=== PATIENT | female | born 1960 | race Caucasian/White ===

== ENCOUNTER 2021-06-30 17:58 | Inpatient (IN) ==
[2021-06-30 19:02] LABS: ABG Base Excess -0.6 MMOL/L (-2.5-2.5); ABG HCO3 23.9 MMOL/L (20-26); ABG Oxygen Saturation 95.8 % (95-100); ABG PCO2 34.5 MM HG (35-48); ABG PH 7.437 (7.35-7.45); ABG PO2 76.9 MM HG (80-95); ABG TCO2 21.3 MMOL/L (23-27)
[2021-06-30 19:31] LABS: Basophils % 0.2 % (0.0-0.8); Eosinophils % 0.3 % (0.00-10.9); Hematocrit 29.9 VOL% (35.7-47.0); Hemoglobin 9.5 GM/DL (12.0-16.0); Immature Granulocytes % 1.3 %; Immature Granulocytes Absolute 0.08 #; Lymphocytes # 1.2 10*3/uL (1.4-4.0); Lymphocytes % 19.8 % (21.3-54.2); Mean Corpuscular HGB Conc 31.8 GM/DL (32-36); Mean Corpuscular Volume 87.4 FL (87-102); Mean Platelet Volume 9.5 FL (9.6-12.0); Monocytes % 10.1 % (1.7-12.7); Neutrophils % 68.3 % (38.7-73.9); Platelet Count 270 T/CUMM (130-400); Red Blood Count 3.42 MC/CUMM (3.8-5.5); White Blood Count 6.1 T/CUMM (4-12)
[2021-06-30 19:45] LABS: Albumin 2.6 G/DL (3.4-5.0); Bilirubin,Total 0.4 MG/DL (0.20-1.00); Calcium 8.1 MG/DL (8.5-10.1); Osmolality,Calculated 277.5 MOS/KG (273-304); Potassium 3.6 MMOL/L (3.5-5.1); Total Protein 5.6 G/DL (6.4-8.2)
[2021-06-30] MEDS ORDERED: diphenhydrAMINE CAP 25 MG CAPSULE PO PRN (20:28)
[2021-06-30] MEDS ORDERED: GLUCAGON 1 MG VIAL IM PRN ×2 (20:28)
[2021-06-30] MEDS ORDERED: DEXTROSE 50% 25 GM/50 ML VIAL IV PRN ×2 (20:28)
[2021-06-30] MEDS ORDERED: ACETAMINOPHEN 325 MG TABLET PO PRN (20:28)
[2021-06-30] MEDS ORDERED: guaiFENesin/DM ER 600-30 MG TABLET PO PRN (20:28)
[2021-06-30] MEDS ORDERED: ZALEPLON 5 MG CAPSULE PO PRN (20:28)
[2021-06-30] MEDS ORDERED: BISACODYL 5 MG TABLET PO PRN (20:28)
[2021-06-30] MEDS ORDERED: ONDANSETRON 4 MG/2 ML VIAL IV PRN (20:28)
[2021-06-30] MEDS ORDERED: hydrALAZINE 20 MG/1 ML VIAL IV PRN (20:28)
[2021-06-30] MEDS ORDERED: NICOTINE 21 MG/24 HR PATCH TRANSDERM PRN (20:28)
[2021-06-30] MEDS ORDERED: LEVOFLOXACIN INJ 750 MG/150 ML PREMIX IV SCH (21:00)
[2021-06-30] MEDS: ENOXAPARIN 40 MG/0.4 ML SYRINGE SUBCUT SCH (21:19)
[2021-06-30] MEDS: FAMOTIDINE 20 MG TABLET PO SCH (22:00)
[2021-06-30] MEDS: ASCORBIC ACID 500 MG TABLET PO SCH (22:00)
[2021-06-30] MEDS: INSULIN LISPRO 100 UNIT/ML SUBCUT SCH (22:21)
[2021-06-30] MEDS: PIPERACILLIN/TAZOBACTAM 3,375 MG in SODIUM CHLORIDE 0.9% 100 ML IV SCH (23:41)
[2021-07-01] MEDS: VANCOMYCIN INJ 1,000 MG in SODIUM CHLORIDE 0.9% 250 ML IV SCH ×2 (03:21→14:52)
[2021-07-01 04:06] LABS: Basophils % 0.2 % (0.0-0.8); Eosinophils % 0.2 % (0.00-10.9); Hematocrit 28.6 VOL% (35.7-47.0); Hemoglobin 9.1 GM/DL (12.0-16.0); Immature Granulocytes % 1.2 %; Immature Granulocytes Absolute 0.08 #; Lymphocytes # 1.2 10*3/uL (1.4-4.0); Lymphocytes % 17.5 % (21.3-54.2); Mean Corpuscular HGB Conc 31.8 GM/DL (32-36); Mean Corpuscular Volume 87.5 FL (87-102); Mean Platelet Volume 9.5 FL (9.6-12.0); Neutrophils % 69.9 % (38.7-73.9); Platelet Count 245 T/CUMM (130-400); Red Blood Count 3.27 MC/CUMM (3.8-5.5); Red Cell Distribution Width 12.9 % (9.3-17.3); White Blood Count 6.6 T/CUMM (4-12)
[2021-07-01 04:32] LABS: Osmolality,Calculated 274.8 MOS/KG (273-304); Potassium 3.8 MMOL/L (3.5-5.1)
[2021-07-01] MEDS: PIPERACILLIN/TAZOBACTAM 3,375 MG in SODIUM CHLORIDE 0.9% 100 ML IV SCH ×2 (05:32→14:59)
[2021-07-01] MEDS: ALBUTEROL/IPRATROPIUM 3 ML NEB RESP TX SCH ×3 (06:44→17:21)
[2021-07-01] MEDS ORDERED: MAGNESIUM SULF RIDER 4 GM/100 ML PREMIX IV PRN (08:01)
[2021-07-01] MEDS ORDERED: MAGNESIUM SULF RIDER 2 GM/50 ML PREMIX IV PRN (08:01)
[2021-07-01] MEDS: CHOLECALCIFEROL 1,000 UNIT TABLET PO SCH (08:50)
[2021-07-01] MEDS: ZINC GLUCONATE 50 MG TABLET PO SCH (08:50)
[2021-07-01] MEDS: CLOPIDOGREL 75 MG TABLET PO SCH (08:50)
[2021-07-01] MEDS: ASCORBIC ACID 500 MG TABLET PO SCH ×2 (08:50→21:21)
[2021-07-01] MEDS: FAMOTIDINE 20 MG TABLET PO SCH ×2 (08:50→21:21)
[2021-07-01] MEDS: DEXAMETHASONE 10 MG/1 ML VIAL IV SCH (08:51)
[2021-07-01] MEDS: INSULIN LISPRO 100 UNIT/ML SUBCUT SCH ×4 (08:51→21:20)
[2021-07-01 09:30] LABS: ABG Base Excess -0.8 MMOL/L (-2.5-2.5); ABG HCO3 23.7 MMOL/L (20-26); ABG Oxygen Saturation 99.1 % (95-100); ABG PCO2 36.2 MM HG (35-48); ABG PH 7.418 (7.35-7.45); ABG TCO2 21.6 MMOL/L (23-27)
[2021-07-01] MEDS: PANTOPRAZOLE 40 MG TABLET PO SCH (09:53)
[2021-07-01] MEDS ORDERED: IVERMECTIN 3 MG TABLET PO SCH ×2 (15:30→17:00)
[2021-07-01] MEDS ORDERED: AZITHROMYCIN INJ 500 MG in SODIUM CHLORIDE 0.9% 250 ML IV SCH (16:00)
[2021-07-01] MEDS: LEVOFLOXACIN INJ 750 MG/150 ML PREMIX IV SCH (16:54)
[2021-07-01] MEDS: carvediloL 25 MG TABLET PO SCH (16:55)
[2021-07-01] MEDS: ENOXAPARIN 40 MG/0.4 ML SYRINGE SUBCUT SCH (21:20)
[2021-07-01] MEDS: VENLAFAXINE 75 MG TABLET PO SCH (21:20)
[2021-07-01] MEDS: SIMVASTATIN 20 MG TABLET PO SCH (21:21)
[2021-07-02] MEDS: carvediloL 25 MG TABLET PO SCH ×2 (08:42→16:41)
[2021-07-02] MEDS: INSULIN LISPRO 100 UNIT/ML SUBCUT SCH ×4 (08:42→21:25)
[2021-07-02] MEDS: IVERMECTIN 3 MG TABLET PO SCH (08:42)
[2021-07-02] MEDS: CHOLECALCIFEROL 1,000 UNIT TABLET PO SCH (08:43)
[2021-07-02] MEDS: ZINC GLUCONATE 50 MG TABLET PO SCH (08:43)
[2021-07-02] MEDS: DEXAMETHASONE 10 MG/1 ML VIAL IV SCH (08:43)
[2021-07-02] MEDS: ASCORBIC ACID 500 MG TABLET PO SCH ×2 (08:43→21:25)
[2021-07-02] MEDS: CLOPIDOGREL 75 MG TABLET PO SCH (08:43)
[2021-07-02] MEDS: FAMOTIDINE 20 MG TABLET PO SCH ×2 (08:43→21:25)
[2021-07-02] MEDS: PANTOPRAZOLE 40 MG TABLET PO SCH (08:43)
[2021-07-02] MEDS: LEVOFLOXACIN INJ 750 MG/150 ML PREMIX IV SCH (16:42)
[2021-07-02] MEDS: amLODIPine 10 MG TABLET PO SCH (17:17)
[2021-07-02] MEDS: LOSARTAN 50 MG TABLET PO SCH (17:17)
[2021-07-02] MEDS ORDERED: INSULIN LISPRO 100 UNIT/ML SUBCUT ONE (18:42)
[2021-07-02] MEDS: SIMVASTATIN 20 MG TABLET PO SCH (21:25)
[2021-07-02] MEDS: VENLAFAXINE 75 MG TABLET PO SCH (21:25)
[2021-07-02] MEDS: ENOXAPARIN 40 MG/0.4 ML SYRINGE SUBCUT SCH (21:25)
[2021-07-03 05:34] LABS: Basophils % 0.3 % (0.0-0.8); Hematocrit 28.6 VOL% (35.7-47.0); Immature Granulocytes % 7.8 %; Immature Granulocytes Absolute 0.55 #; Lymphocytes # 1.1 10*3/uL (1.4-4.0); Lymphocytes % 14.8 % (21.3-54.2); Mean Corpuscular HGB Conc 31.5 GM/DL (32-36); Mean Corpuscular Volume 87.5 FL (87-102); Mean Platelet Volume 9.6 FL (9.6-12.0); Monocytes % 6.9 % (1.7-12.7); Neutrophils % 70.2 % (38.7-73.9); Platelet Count 347 T/CUMM (130-400); Red Blood Count 3.27 MC/CUMM (3.8-5.5); Red Cell Distribution Width 13.1 % (9.3-17.3); White Blood Count 7.1 T/CUMM (4-12)
[2021-07-03 05:57] LABS: Hypochromasia 1+; Lymphocytes 9 % (20-55); Microcytosis 1+; Nucleated Red Blood Cells 1 (0-5); Platelet Estimate Adequate; Segmented Neutrophils 86 % (50-85); Total Cells Counted 100
[2021-07-03 06:03] LABS: Calcium 8.9 MG/DL (8.5-10.1); Osmolality,Calculated 287.7 MOS/KG (273-304); Potassium 4.2 MMOL/L (3.5-5.1)
[2021-07-03] MEDS ORDERED: [UNRECOGNIZED DRUG - OTHER] PO SCH (08:00)
[2021-07-03] MEDS ORDERED: SITAGLIPTIN METFORMIN PO SCH (08:00)
[2021-07-03] MEDS ORDERED: MULTI PO SCH (08:00)
[2021-07-03] MEDS: amLODIPine 10 MG TABLET PO SCH (08:43)
[2021-07-03] MEDS: ZINC GLUCONATE 50 MG TABLET PO SCH (08:43)
[2021-07-03] MEDS: CHOLECALCIFEROL 1,000 UNIT TABLET PO SCH (08:43)
[2021-07-03] MEDS: FAMOTIDINE 20 MG TABLET PO SCH ×2 (08:43→20:46)
[2021-07-03] MEDS: CLOPIDOGREL 75 MG TABLET PO SCH (08:43)
[2021-07-03] MEDS: LOSARTAN 50 MG TABLET PO SCH (08:43)
[2021-07-03] MEDS: carvediloL 25 MG TABLET PO SCH ×2 (08:43→16:26)
[2021-07-03] MEDS: PANTOPRAZOLE 40 MG TABLET PO SCH (08:43)
[2021-07-03] MEDS: ASCORBIC ACID 500 MG TABLET PO SCH ×2 (08:43→20:46)
[2021-07-03] MEDS: INSULIN LISPRO 100 UNIT/ML SUBCUT SCH ×4 (08:46→21:55)
[2021-07-03] MEDS: DEXAMETHASONE 10 MG/1 ML VIAL IV SCH (08:49)
[2021-07-03] MEDS: IVERMECTIN 3 MG TABLET PO SCH (09:05)
[2021-07-03] MEDS: LEVOFLOXACIN INJ 750 MG/150 ML PREMIX IV SCH (16:27)
[2021-07-03] MEDS: ENOXAPARIN 40 MG/0.4 ML SYRINGE SUBCUT SCH (20:46)
[2021-07-03] MEDS: VENLAFAXINE 75 MG TABLET PO SCH (20:46)
[2021-07-03] MEDS: SIMVASTATIN 20 MG TABLET PO SCH (20:47)
[2021-07-04] MEDS: CLOPIDOGREL 75 MG TABLET PO SCH (09:16)
[2021-07-04] MEDS: CHOLECALCIFEROL 1,000 UNIT TABLET PO SCH (09:16)
[2021-07-04] MEDS: carvediloL 25 MG TABLET PO SCH (09:16)
[2021-07-04] MEDS: FAMOTIDINE 20 MG TABLET PO SCH (09:16)
[2021-07-04] MEDS: ASCORBIC ACID 500 MG TABLET PO SCH (09:16)
[2021-07-04] MEDS: LOSARTAN 50 MG TABLET PO SCH (09:16)
[2021-07-04] MEDS: INSULIN LISPRO 100 UNIT/ML SUBCUT SCH ×2 (09:17→12:39)
[2021-07-04] MEDS: amLODIPine 10 MG TABLET PO SCH (09:17)
[2021-07-04] MEDS: DEXAMETHASONE 10 MG/1 ML VIAL IV SCH (09:18)
[2021-07-04] MEDS: ZINC GLUCONATE 50 MG TABLET PO SCH (09:27)
[2021-07-04] MEDS: IVERMECTIN 3 MG TABLET PO SCH (09:28)
[2021-07-04 15:54] VITALS: BP 134/79
[2021-07-04] MEDS ORDERED: SITAGLIPTIN METFORMIN PO SCH (21:00)
== END 2021-07-04 14:08 | disposition home health service (06) | DRG 177 ==
LOC: N.ED 17:58 → SUATTDRO 20:28 → N.EDINP 20:28 → N.2E 22:00
PROVIDERS: ADMIT Internal Medicine; ATTEND Internal Medicine